=== PATIENT | male | born 1960 | race Caucasian/White ===

== ENCOUNTER 2019-04-05 14:59 | Outpatient (REF) | payer SELFPAY ==
[2019-04-05 17:12] LABS: Estmated Average Glucose 103; Hemoglobin A1C 5.2 % (4.0-6.0)
[2019-04-05 17:47] LABS: Chol HDL Ratio 4.19 mg/dL (1.0-5.00); Cholesterol 134 mg/dL (0-200); Glucose 101 mg/dL (65-115); HDL Cholesterol 32 mg/dL (60-100); LDL Cholesterol Calculated 81 mg/dL (50-129); LDL HDL Ratio 2.53 RATIO (0.00-3.22); Triglycerides 104 mg/dL (0-150)
== END 2019-04-05 15:00 | disposition home or self-care (01) ==
LOC: LAB 14:59
PROVIDERS: Family Provider Family Medicine; Visit Provider Dermatology
DX: Z13.9 Encounter for screening, unspecified (principal)
CPT/HCPCS: 80061; 82947; 83036

== ENCOUNTER 2019-07-31 03:17 | Emergency (ER) | payer BC, SELFPAY ==
[2019-07-31 03:21] VITALS: BP 154/94; PULSE 70; RESP 18; TEMP 36.5; O2SAT 96; BMI 42.5
--- NOTE | 2019-07-31 03:47 | ECG_ITS ---
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 Measurements Intervals [place] Rate: 69 P: 38 MA: 159 QRS: 45 QRSD: 84 T: 58 QT: 412 QTc: 442 Interpretive Statements SINUS RHYTHM No previous ECG available for comparison Electronically Signed On 07-31-2019 23:38:34 CDT by Jeremias Land M.D. [id number]
--- NOTE | 2019-07-31 03:48 | W.ED.ABDPA2 ---
HPI - Abdominal Pain General: Chief Complaint: Abdominal Pain Stated Complaint: abd pain Time Seen by Provider: 07/31/19 03:23 Source: patient Mode of arrival: ambulatory Limitations: no limitations History of Present Illness: HPI narrative: 58-year-old male states he has had abdominal pain since . He states the pain is sharp in nature and epigastric and was much worse after eating [place] food. He states he had a lot of belching as well. He has had a history of reflux in the past. He denies any fevers. He denies any vomiting. MD elicited complaint: abdominal pain Onset (ago): day(s) Pain Consistency: constant Location: Epigastric Severity: moderate Quality: cramping Exacerbating factors: eating Associated Symptoms: Reports belching; Denies chills, dysuria and fever(s) Review of Systems Const: Denies: fever(s), chills, body aches or change in appetite Eyes: Denies: blurry vision or eye discomfort ENMT: Denies: throat pain or dental pain Card: Denies: chest pain Resp: Denies: dyspnea GI: Reports: abdominal pain and belching : Denies: dysuria Musc: Denies: neck pain or back pain Skin/Breast: Denies: rash Neuro: Denies: headache(s) Psych: Denies: depression Dustin/Lymph: Denies: easy bruising All/Imm: Denies: urticaria PFSH ED PFSH: Social History Smoking and tobacco status: never smoked Physical Exam Const: COMMON NORMALS: no acute distress, patient oriented x3 and healthy appearing HENMT: COMMON NORMALS: normocephalic and atraumatic HEAD & SCALP: normocephalic and atraumatic Eye: COMMON NORMALS: Equal, round and reactive pupils present and EOMs intact bilaterally PUPIL: Yes Equal, round and reactive pupils present Neck/C-Spine: COMMON NORMALS: full ROM and supple Chest: COMMONS NORMALS: normal inspection of the chest and normal palpation of entire chest wall Resp: COMMON NORMALS: normal respiratory effort, No retractions, No use of accessory muscles and clear to auscultation bilaterally AUSCULTATION: clear to auscultation bilaterally Cardio: COMMON NORMALS: regular rate, regular rhythm and No murmurs present (Cardio) RATE: regular rate RHYTHM: regular rhythm GI: COMMON NORMALS: Normal to inspection, nondistended, normoactive bowel sounds present, Soft to palpation, non-tender and no masses PALPATION: Yes Soft to palpation Extremity: COMMON NORMALS: normal to inspection and full ROM Neuro: COMMON NORMALS: patient oriented x3, moves all extremities and no focal motor deficits Psych: COMMON NORMALS: mental status grossly normal, Normal thought process present and cooperative THOUGHT PROCESS: Normal thought process present Skin: COMMON NORMALS: no rashes or lesions noted and no wounds GENERAL SKIN EXAM: no rashes or lesions noted Course Vital Signs: Vital signs: Vital Signs Temperature 97.7 F 07/31/19 03:21 Pulse Rate 63 07/31/19 04:36 Respiratory Rate 20 H 07/31/19 04:36 Blood Pressure 131/83 07/31/19 04:36 Pulse Oximetry 96 07/31/19 04:36 MDM - Abdominal Pain MDM Narrative: Medical decision making narrative: Patient presents with pancreatitis that is mild in nature. Patient's lipase level here is 90. Patient has no signs of gallstones and other lab work is normal. Patient is requesting discharge and I feel he is stable for discharge. Patient is to do an all liquid diet and will place him on [place]. He is to follow-up with his primary care doctor in 2 to 4 days and return to ER if his pain worsens. He understands and agrees to plan. Lab Data: Labs: Lab Results 07/31/19 07/31/19 Range/Units 03:49 03:49 WBC 9.4 (4.0-10.0) 10^3/ uL RBC 6.02 H (4.1-5.3) 10^6/u L Hgb 14.1 (11.7-16.6) g/dL Hct 45.5 (42.0-52.0) % MCV 75.6 L (80-94) fL MCH 23.4 L (28.0-34.0) pg MCHC 31.0 (30.0-36.0) g/dL RDW 19.5 H (12.1-15.1) % Plt Count 254 (130-400) 10^3/c mm MPV 9.8 (7.4-10.4) fL Neut % (Auto) 59.3 % Lymph % (Auto) 24.0 % [place] % (Auto) 8.9 % Eos % (Auto) 7.0 % Baso % (Auto) 0.6 % Neut # (Auto) 5.6 (1.8-7.7) 10^3/u L Lymph # (Auto) 2.3 (0.8-4.8) 10^3/u L [place] # (Auto) 0.8 (0.2-0.9) 10^3/u L Eos # (Auto) 0.7 (0.0-0.8) 10^3/u L Baso # (Auto) 0.1 (0.0-0.1) 10^3/u L Nucleated RBC % (a uto) 0 % Nucleated RBCs # 0.0 /100WBC Sodium 140 (136-145) mmol/L Potassium 4.1 (3.5-5.1) mmol/L Chloride 102 (98-107) mmol/L Carbon Dioxide 27 (22-29) mmol/L Anion Gap 15.1 (5-19) BUN 15 (6-20) mg/dL Creatinine 0.9 (0.7-1.2) mg/dL GFR Calculation 86.7 L (90-130) mL/min Glucose 98 (65-115) mg/dL Calculated Osmolal ity 286 (285-295) mOsm/k g Calcium 9.5 (8.5-10.5) mg/dL Total Bilirubin 0.3 (0.15-1.2) mg/dL AST 27 (0-40) U/L ALT 28 (0-41) U/L Alkaline Phosphata se 50 (40-130) IU/L Total Protein 7.3 (6.6-8.7) g/dL Albumin 4.6 (3.5-5.2) g/dL Globulin 2.7 (1.3-4.6) g/dL Lipase 79 H (13-60) U/L Imaging Data ^: CT Abd/Pel: Radiologist's impression: [address] [address] [address] Scan Report Signed Patient: Tangela Pierre Unit #: [id number] : 1960 Age/Sex: 58 / M ADM Date: 07/31/19 Loc: ER Room/Bed: Attending Dr: Ordering Provider/Ordering MD: Rodney Sheikh MD Date of Service: 07/31/19 Procedure(s): CT abdomen pelvis w con* [id number] Accession Number(s): [id number] Report Number: [id number] PROCEDURE INFORMATION: Exam: CT Abdomen And Pelvis With Contrast Exam date and time: 07/31/2019 4:21 AM Age: 58 years old Clinical indication: Abdominal pain; Epigastric; Additional info: Abd pain TECHNIQUE: Imaging protocol: Computed tomography of the abdomen and pelvis with intravenous contrast. Radiation optimization: All CT scans at this facility use at least one of these dose optimization techniques: automated exposure control; mA and/or kV adjustment per patient size (includes targeted exams where dose is matched to clinical indication); or iterative reconstruction. Contrast material: OMNI 300; Contrast volume: 95 ml; Contrast route: INTRAVENOUS (IV); COMPARISON: No relevant prior studies available. RADIATION DOSE METRICS: Total DLP (mGy-cm): 2086.76 FINDINGS: Liver: No mass. Gallbladder and bile ducts: The gallbladder is contracted. Pancreas: There is prominence of the pancreatic head with mild stranding. No ductal dilation. No peripancreatic fluid collection. Spleen: No splenomegaly. Adrenals: No mass. Kidneys and ureters: No hydronephrosis. Stomach and bowel: No obstruction. No mucosal thickening. Appendix: No evidence of appendicitis. Intraperitoneal space: No free air. No significant fluid collection. Vasculature: No abdominal aortic aneurysm. The main portal vein and its branches, superior mesenteric vein, splenic vein are patent. Lymph nodes: No enlarged lymph nodes. Bladder: Unremarkable as visualized. Reproductive: Unremarkable as visualized. Bones/joints: Unremarkable. No acute fracture. Soft tissues: Unremarkable. CT/CT abdomen pelvis w con* [id number] IMPRESSION: Acute non complicated pancreatitis. EKG Data ^: EKG 1: Attestation: I personally reviewed and interpreted this EKG as follows: EKG interpretation date: 07/31/19 EKG interpretation time: 03:59 Interpretation: nsr hr [address] or t wave abnormalities qrs 84 qtc 430 Discharge Plan Discharge Patient Disposition: Home, Self-Care Clinical Impression: Pancreatitis Qualifiers: Chronicity: acute Pancreatitis type: unspecified pancreatitis type Acute pancreatitis complication: unspecified Qualified Code(s): K85.90 - Acute pancreatitis without necrosis or infection, unspecified Condition: Stable Prescriptions: [place] 5-325 mg tablet 1 tab PO Q6H PRN (Reason: pain) Qty: 14 RF: 0 ondansetron 4 mg tablet,disintegrating 4 mg PO Q6H PRN (Reason: nausea and vomiting) Qty: 14 RF: 0 No Action hydrochlorothiazide 12.5 mg Capsule 12.5 mg PO BID RF: 0 simvastatin 40 mg Tablet 40 mg PO QPM RF: 0 omeprazole 40 mg Capsule,Delayed Release(Dr/Ec) 40 mg PO DAILY RF: 0 citalopram 20 mg Tablet 20 mg PO DAILY RF: 0 spironolactone 25 mg Tablet 25 mg PO DAILY RF: 0 valsartan 320 mg Tablet 320 mg PO DAILY RF: 0 Discharge Orders: Discharge Order (Routine); Ordered 07/31/19 Ordered By: Rodney Sheikh Referrals: Jose Angel Marrero MD [Primary Care Provider] - 1-3 days Discharge Diet: Advance as tolerated Discharge Activity: Resume usual activity Patient Instructions: Pancreatitis (ED) Coding Level of Care Code ED Corporate Staff Accountant for Chg Fwd Exam Comprehensive
[2019-07-31] MEDS: lidocaine 2% viscous 15 ML, aluminum-mag hydrox-simethicon 30 ML, sucralfate oral liq 1 GM PO (03:58)
[2019-07-31 04:04] LABS: Basophils # 0.1 10^3/uL (0.0-0.1); Basophils % 0.6 %; Eosinophils # 0.7 10^3/uL (0.0-0.8); Hematocrit 45.5 % (42.0-52.0); Hemoglobin 14.1 g/dL (11.7-16.6); Lymphocytes # 2.3 10^3/uL (0.8-4.8); Mean Corpuscular Hemoglobin 23.4 pg (28.0-34.0); Mean Corpuscular Volume 75.6 fL (80-94); Mean Platelet Volume 9.8 fL (7.4-10.4); Monocytes # 0.8 10^3/uL (0.2-0.9); Monocytes % 8.9 %; Neutrophils # 5.6 10^3/uL (1.8-7.7); Neutrophils % 59.3 %; Nucleated Red Blood Cells % 0 %; Platelet Count 254 10^3/cmm (130-400); Red Blood Count 6.02 10^6/uL (4.1-5.3); Red Cell Distribution Width 19.5 % (12.1-15.1); White Blood Count 9.4 10^3/uL (4.0-10.0)
[2019-07-31 04:16] LABS: Alanine Aminotransferase 28 U/L (0-41); Albumin Level 4.6 g/dL (3.5-5.2); Alkaline Phosphatase 50 IU/L (40-130); Anion Gap 15.1 (5-19); Aspartate Amino Transferase 27 U/L (0-40); Blood Urea Nitrogen 15 mg/dL (6-20); Calcium 9.5 mg/dL (8.5-10.5); Carbon Dioxide 27 mmol/L (22-29); Chloride 102 mmol/L (98-107); Globulin 2.7 g/dL (1.3-4.6); Glomerular Filtration Rate 86.7 mL/min (90-130); Glucose 98 mg/dL (65-115); Lipase 79 U/L (13-60); Osmolality Calculated 286 mOsm/kg (285-295); Potassium 4.1 mmol/L (3.5-5.1); Sodium 140 mmol/L (136-145); Total Bilirubin 0.3 mg/dL (0.15-1.2); Total Protein 7.3 g/dL (6.6-8.7)
--- NOTE | 2019-07-31 04:19 | CTR_ITS ---
PROCEDURE INFORMATION: Exam: CT Abdomen And Pelvis With Contrast Exam date and time: 07/31/2019 4:21 AM Age: 58 years old Clinical indication: Abdominal pain; Epigastric; Additional info: Abd pain TECHNIQUE: Imaging protocol: Computed tomography of the abdomen and pelvis with intravenous contrast. Radiation optimization: All CT scans at this facility use at least one of these dose optimization techniques: automated exposure control; mA and/or kV adjustment per patient size (includes targeted exams where dose is matched to clinical indication); or iterative reconstruction. Contrast material: OMNI 300; Contrast volume: 95 ml; Contrast route: INTRAVENOUS (IV); COMPARISON: No relevant prior studies available. RADIATION DOSE METRICS: Total DLP (mGy-cm): 2086.76 FINDINGS: Liver: No mass. Gallbladder and bile ducts: The gallbladder is contracted. Pancreas: There is prominence of the pancreatic head with mild stranding. No ductal dilation. No peripancreatic fluid collection. Spleen: No splenomegaly. Adrenals: No mass. Kidneys and ureters: No hydronephrosis. Stomach and bowel: No obstruction. No mucosal thickening. Appendix: No evidence of appendicitis. Intraperitoneal space: No free air. No significant fluid collection. Vasculature: No abdominal aortic aneurysm. The main portal vein and its branches, superior mesenteric vein, splenic vein are patent. Lymph nodes: No enlarged lymph nodes. Bladder: Unremarkable as visualized. Reproductive: Unremarkable as visualized. Bones/joints: Unremarkable. No acute fracture. Soft tissues: Unremarkable. CT/CT abdomen pelvis w con* [id number] IMPRESSION: Acute non complicated pancreatitis. Radiation Dose CTDIVOL = (mGy): DLP = 2086.76 (mGy-cm)
[2019-07-31] MEDS: ondansetron 2 mg/ML SDV 2 mL 4 MG IVP (04:33)
[2019-07-31] MEDS: morphine 4 mg/mL SDV 1 mL IVP ×2 (04:33→05:05)
[2019-07-31 04:36] VITALS: BP 131/83; PULSE 63; RESP 20; O2SAT 96
--- NOTE | 2019-07-31 04:50 | PC.NURSE ---
Pt. to CT scan via stretcher
--- NOTE | 2019-07-31 04:57 | PC.NURSE ---
Returned from CT scan
[2019-07-31 05:30] VITALS: BP 127/77; PULSE 65; RESP 18
[2019-07-31 05:53] LABS: Add Urine Microscopic? NO
[2019-07-31 06:04] LABS: Bilirubin Urine Neg (NEGATIVE); Blood Urine Neg (Negative); Glucose Urine UA Norm (Normal); Ketones Urine Negative (Negative); Leukocyte Esterase Urine Negative (Negative); Nitrate Urine Negative (Negative); Protein Urine Neg (Negative); Specific Gravity, Urine 1.025 (1.005-1.030); Urine Appearance Clear (CLEAR); Urine Color Yellow (Yellow); Urobilinogen Urine 1 mg/dL (Negative); pH Urine 5 (5-7)
== END 2019-07-31 05:33 | disposition home or self-care (01) ==
PROVIDERS: Emergency Provider Emergency Medicine; PCP Family Medicine
DX: K85.90 Acute pancreatitis without necrosis or infection, unspecified (principal)
CPT/HCPCS: 12345; 74177; 80053; 81003; 83690; 85025; 93005; 96374; 96375; 96376; 99283; J2270; J2405; Q9967

== ENCOUNTER 2019-08-06 10:24 | Outpatient (CLI) | payer BC, SELFPAY ==
--- NOTE | 2019-08-06 10:53 | XR_ITS ---
WS: [id number] ABDOMEN 1 VIEW(S) HISTORY: LEFT UPPER QUADRANT ABDOMINAL PAIN COMPARISON: None available. Normal bowel gas pattern. No suspicious calcifications or masses. No bone abnormality. XR/XR KUB [id number] IMPRESSION: Normal abdomen.
== END 2019-08-06 10:25 | disposition home or self-care (01) ==
LOC: RADWPI 10:29
PROVIDERS: Family Provider Family Medicine; PCP Family Medicine; Visit Provider Nurse Practitioner Family
DX: R10.12 Left upper quadrant pain (principal)
CPT/HCPCS: 74018

== ENCOUNTER 2019-09-07 09:57 | Outpatient (CLI) | payer BC, SELFPAY ==
--- NOTE | 2019-09-07 10:01 | XR_ITS ---
WS: [id number] CHEST 2 VIEWS HISTORY: COUGH COMPARISON: 07/12/2016 Lungs: Clear with no abnormality. No pleural effusion or pneumothorax. Cardiac size: Normal. Mediastinum/Aorta: Normal mediastinum. Bones: Normal. XR/XR chest 2V* [id number] IMPRESSION: Normal chest.
== END 2019-09-07 09:58 | disposition home or self-care (01) ==
LOC: RADWPI 10:00
PROVIDERS: Family Provider Family Medicine; PCP Family Medicine; Visit Provider Specialist
DX: R05 Cough (principal)
CPT/HCPCS: 71046

== ENCOUNTER → 2019-11-26 15:00 | Outpatient (BNVA) | payer BC, SELFPAY | PROVIDERS: Family Provider Family Medicine; PCP Family Medicine; Visit Provider Surgery | DX: Z11.59 Encounter for screening for other viral diseases (principal) | CPT/HCPCS: 87635 ==

== ENCOUNTER 2019-11-29 08:06 | Day surgery (SDC) | payer BC, SELFPAY ==
[2019-11-27 11:18] VITALS: BMI 39.9
[2019-11-29 08:22] VITALS: BP 139/99; RESP 18; TEMP 36.6; O2SAT 97
[2019-11-29] MEDS: sodium chloride 0.9% 1,000 ML 30 ML IV (08:43)
--- NOTE | 2019-11-29 08:45 | ANES.PREANE2 ---
Pre-Anesthetic Assessment Pre-Anesthetic Assessment: Height/Weight: Height 1.75 m Weight 122.47 kg Temp Resp BP Pulse Ox 97.9 F 18 139/99 97 11/29/19 08:22 11/29/19 08:22 11/29/19 08:22 11/29/19 08:22 Preop Diagnosis: Abdominal pain Proposed Procedure: Operation Date: 11/29/19 09:00 Proposed Procedures p EGD/Colon 50067 K21.9(Not Applicable) - Donovan Meier MD s Colonoscopy 91155 Z12.11(Not Applicable) - Donovan Meier MD Was Beta Pamella taken within 24 hours: N/A Last intake: Intake Last Liquid Date 11/28/19 Last Liquid Time 20:00 Last Solid Date 11/20/19 Last Solid Time 18:00 Social: Social History: Alcohol Exam: Pre-Anes Outpt Exam: alert, oriented x 3, clear to auscultation bilaterally and regular rate & rhythm Airway: Submandibular: WNL Cervical ROM: WNL MP: 2 Dentition: False History/ROS: No significant history except as noted and No significant complaints Pulmonary: Pulmonary: None reported CV/HEM: CV/HEM: HTN : : None reported Hepatic: Comments: Hx pancreatitis GI: GI: GERD Metabolic: Metabolic: Morbid obesity Musc/skel: Musc/skel: None reported Neuropsych: Neuropsych: Depression Anesthetic Plan: ASA status: 3 Anesthesia: Anesthesia Evaluation and MAC Risk of > 500 ml blood loss (7ml/kg in children): No Meds/Allergies Current Medications: Current Medications Generic Name Dose Route Start Last Admin Trade Name Freq PRN Reason Stop Dose Admin Sodium Chloride 1,000 mls @ 30 ml s/hr 11/29/19 08:15 11/29/19 08:43 Sodium Chloride 0.9% IV 30 mls/hr .Q24H JERICA Administration PFSH Anesthesia PFSH: Medical History (Updated 11/20/19 @ 14:23 by Donovan Meier MD) Depression GERD (gastroesophageal reflux disease) Hyperlipidemia Hypertension Surgical History H/O colonoscopy yrs ago H/O esophagogastroduodenoscopy Family History Grandmother Cancer Denies family history of CAD (coronary artery disease) Anesthesia complication Bleeding disorder Social History Smoking and tobacco status: never smoked Alcohol intake: current Alcohol intake frequency: holidays/special occasions only Household members: spouse Marital status: Current occupational status: employed History of recent travel: No Data Anesthesia Cardiac Studies: No Data to Display
--- NOTE | 2019-11-29 10:10 | W.PM.OPSUD ---
Surgery/Procedure H&P Update DATE OF PROCEDURE: November 29, 2019 DATE H&P PERFORMED: 11/20/19 H&P UPDATE INFORMATION: I have reviewed H&P completed within last 30 days, I have examined patient prior to procedure and No changes to prior documentation PREOP DIAGNOSIS: Abdominal pain PLANNED PROCEDURE: Operation Date: 11/29/19 09:00 Proposed Procedures p EGD/Colon 46790 K21.9(Not Applicable) - Donovan Meier MD s Colonoscopy 31293 Z12.11(Not Applicable) - Donovan Meier MD
[2019-11-29 10:11] VITALS: BP 108/71; PULSE 86; RESP 18; TEMP 36.4; O2SAT 94
[2019-11-29 10:29] VITALS: BP 104/72; PULSE 75; RESP 18; O2SAT 97
--- NOTE | 2019-11-29 10:45 | ANE.PACU2 ---
Inpatient post-anesthesia follow up: Airway intact: Yes Vital signs: Temperature 97.5 F Pulse Rate 75 Respiratory Rate 18 Blood Pressure 104/72 Pulse Oximetry 97 Oxygen Delivery Me thod Room Air Oxygen Flow Rate Fraction of Inspir ed Oxygen Hydration adequate: Yes Nausea and vomiting: No Pain level: 1 Mental status: Baseline
== END 2019-11-29 10:45 | disposition home or self-care (01) ==
PROVIDERS: PCP Family Medicine; Visit Provider Surgery
PROC: 0DJ08ZZ Inspection of Upper Intestinal Tract, Via Natural or Artificial Opening Endoscopic (ICD-10-PCS; CPT 43235; principal; 2019-11-29 09:00)
PROC: 0DJD8ZZ Inspection of Lower Intestinal Tract, Via Natural or Artificial Opening Endoscopic (ICD-10-PCS; CPT 45378; 2019-11-29 09:00)
DX: Z12.11 Encounter for screening for malignant neoplasm of colon (principal); K21.9 Gastro-esophageal reflux disease without esophagitis; K57.30 Diverticulosis of large intestine without perforation or abscess without bleeding; K64.8 Other hemorrhoids; I10 Essential (primary) hypertension; E66.01 Morbid (severe) obesity due to excess calories; Z68.39 Body mass index [BMI] 39.0-39.9, adult; F32.9 Major depressive disorder, single episode, unspecified; E78.5 Hyperlipidemia, unspecified
CPT/HCPCS: 12345; 43239; 45378; 88305; J2704; J7030

== ENCOUNTER 2019-12-17 10:09 | Outpatient (CLI) | payer BC, SELFPAY ==
--- NOTE | 2019-12-17 10:12 | NM_ITS ---
WS: [id number] NUCLEAR MEDICINE HIDA SCAN CLINICAL INFORMATION: abdominal pain TECHNIQUE: Following intravenous administration of 7.8 mCi of technetium 99m mebrofenin, images of th e abdomen were obtained over the course of 60 minutes. Next, gallbladder ejection fraction was determ ined by obtaining preprandial and one-hour postprandial images of the gallbladder following oral ken stion of Ensure. COMPARISON: None. FINDINGS: Normal hepatic uptake at 5 minutes. Normal filling of the common bile duct. Gallbladder is visualized by 30 minutes. No evidence of acute cholecystitis. Normal small bowel activity. Normal hepatic excre tion. No evidence of choledocholithiasis. Gallbladder ejection fraction 38% at the lower end of the range. Findings suspicious for gallbladder dysfunction and chronic cholecystitis NM/NM hepatobiliary w phar* [id number] IMPRESSION: 1. No evidence of acute cholecystitis. 2. Gallbladder ejection fraction 38% at the lower end of the range suspicious for underlying gallbladder dysfunction and chronic cholecystitis 3. Normal hepatic uptake and excretion. 4. Normal common bile duct and small bowel activity.
== END 2019-12-17 10:10 | disposition home or self-care (01) ==
LOC: NM 10:10
PROVIDERS: PCP Family Medicine; Visit Provider Surgery
DX: R10.9 Unspecified abdominal pain (principal)
CPT/HCPCS: 78227; A9537

== ENCOUNTER → 2019-12-25 10:09 | Outpatient (BNVA) | payer BC, SELFPAY | PROVIDERS: PCP Family Medicine; Visit Provider Surgery | DX: Z11.59 Encounter for screening for other viral diseases (principal); K82.8 Other specified diseases of gallbladder | CPT/HCPCS: 87635 ==

== ENCOUNTER 2019-12-31 06:14 | Day surgery (SDC) | payer BC, SELFPAY ==
[2019-12-28 10:46] VITALS: BMI 41.0
[2019-12-31] VITALS (10 sets, daily range): BP systolic 96–157; BP diastolic 59–91; PULSE 66–86; RESP 15–20; TEMP 36.1–36.9; O2SAT 94–97
--- NOTE | 2019-12-31 06:46 | ANES.PREANE2 ---
Pre-Anesthetic Assessment Pre-Anesthetic Assessment: Height/Weight: Height 1.73 m Weight 122.47 kg Temp Pulse Resp BP Pulse Ox 98.5 F 68 18 157/91 96 12/31/19 06:26 12/31/19 06:26 12/31/19 06:26 12/31/19 06:26 12/31/19 06:26 Preop Diagnosis: Biliary dyskinesia Proposed Procedure: Operation Date: 12/31/19 07:55 Proposed Procedures p Laparoscopic poss open Cholecystectomy 47448 k82.8(Not Applicable) - Donovan Meier MD Familial anesthetic complications: None Was Beta Pamella taken within 24 hours: N/A Last intake: Intake Last Liquid Date 12/30/19 Last Liquid Time 20:00 Last Solid Date 12/30/19 Last Solid Time 20:00 Social: Social History: No alcohol and No tobacco Exam: Pre-Anes Outpt Exam: alert, oriented x 3, clear to auscultation bilaterally and regular rate & rhythm Airway: Cervical ROM: WNL MP: 4 Dentition: False Additional comments: small mouth opening CV/HEM: CV/HEM: HTN GI: GI: GERD Metabolic: Metabolic: Morbid obesity Anesthetic Plan: ASA status: 3 Anesthesia: General Risk of > 500 ml blood loss (7ml/kg in children): No PFSH Anesthesia PFSH: Medical History Depression GERD (gastroesophageal reflux disease) Hyperlipidemia Hypertension Surgical History H/O colonoscopy (11/29/19) repeat in 10 years H/O esophagogastroduodenoscopy (11/29/19) Family History Grandmother Cancer Denies family history of CAD (coronary artery disease) Anesthesia complication Bleeding disorder Social History Smoking and tobacco status: never smoked Alcohol intake: current Alcohol intake frequency: holidays/special occasions only Household members: spouse Marital status: Current occupational status: employed History of recent travel: No Data Anesthesia Cardiac Studies: No Data to Display
[2019-12-31] MEDS: sodium chloride 0.9% 1,000 ML 30 ML IV (06:48)
--- NOTE | 2019-12-31 06:58 | W.PM.OPSUD ---
Surgery/Procedure H&P Update DATE OF PROCEDURE: December 31, 2019 DATE H&P PERFORMED: 12/21/19 H&P UPDATE INFORMATION: I have reviewed H&P completed within last 30 days, I have examined patient prior to procedure and No changes to prior documentation PREOP DIAGNOSIS: Biliary dyskinesia PLANNED PROCEDURE: Operation Date: 12/31/19 07:55 Proposed Procedures p Laparoscopic poss open Cholecystectomy 18424 k82.8(Not Applicable) - Donovan Meier MD
--- NOTE | 2019-12-31 08:29 | SUR.OPER ---
0825-phoned via cell phone and gave update on process.
--- NOTE | 2019-12-31 08:58 | PM.OP ---
Operative Report Date of procedure: December 31, 2019 Pre-op Diagnosis: Biliary dyskinesia Post-op Diagnosis: Chronic cholecystitis with inflammation around the Calot's triangle Procedure Done: Laparoscopic cholecystectomy Specimens removed/disposition: Gallbladder Surgeon: Donovan Meier Anesthesia: General Condition: stable Disposition: PACU Procedure: The patient was taken to the operating room and was intubated under general anesthesia. After the antibiotic had been administered, the abdomen was prepped and draped in a sterile manner. Using a #15 blade, a 1 centimeter infraumbilical curvilinear incision was made and using an open Moe technique the peritoneal cavity was entered. A 10 millimeter port was placed and 15 millimeters of pneumoperitoneum was created. A 10 millimeter, 30 degrees scope was then introduced. Three 5 millimeter ports were placed in the epigastric, midclavicular and the anterior axillary line two fingerbreadths below the costal margin on the right side under the direct visualization. Ratcheted forceps were introduced into the lateral most port and was used to retract the fundus of the gallbladder cephalad and using forceps the infundibulum of the gallbladder was retracted laterally. Using L-hook cautery the peritoneum overlying the Calot's triangle was opened medially and laterally until the cystic duct and the cystic artery were skeletonized. There was inflammation around the Calot's triangle. Dissection was carried along the body of the gallbladder and after ensuring critical view of safety, 4 clips applied on the cystic duct and 3 clips applied on the cystic artery and cut leaving, 3 clips on the remaining portion of the duct and 2 clips on the remaining portion of the artery. The rest of the gallbladder was dissected off the liver using L-hook cautery. There was no bleeding or bile leaking noted from the gallbladder fossa and the clips appeared to be in place. An EndoCatch bag was introduced to remove the gallbladder. All the ports were removed under direct visualization and there was no bleeding noted from the port sites. The fascia of the umbilicus was closed using [id number] 0 Vicryl sutures and the subcutaneous tissue was approximated using 3-0 Vicryl sutures. The skin at all four ports were closed using 4-0 Monocryl and Dermabond. A total of 10 millimeters of 0.5% Marcaine was infiltrated around the port sites. The patient was stable throughout the procedure.
[2019-12-31] MEDS: HYDROcodone-acetaminophen 5-325 mg Tablet 1 TAB PO (09:46)
[2019-12-31] MEDS: fentaNYL 50 mcg/mL INJ 2mL IVP (10:14)
--- NOTE | 2019-12-31 10:15 | PC.NURSE ---
pt c/o pain 08/16. given 1 dose of norco per dr carranza written rx for home. pt states no relief from norco. gave 50mcg fentanyl per recovery anesthesia orders. will continue to monitor pulse ox and resp rate. will re-evaluate and send home if pain relief achieved.
--- NOTE | 2019-12-31 15:14 | ANE.PACU2 ---
Inpatient post-anesthesia follow up: Airway intact: Yes Vital signs: Temperature 97.2 F Pulse Rate 66 Respiratory Rate 16 Blood Pressure 124/87 Pulse Oximetry 96 Oxygen Delivery Me thod Room Air Oxygen Flow Rate 8 Fraction of Inspir ed Oxygen Hydration adequate: Yes Nausea and vomiting: No Pain level: 2 Mental status: Baseline
== END 2019-12-31 10:46 | disposition home or self-care (01) ==
PROVIDERS: PCP Family Medicine; Visit Provider Surgery
PROC: 0FT44ZZ Resection of Gallbladder, Percutaneous Endoscopic Approach (ICD-10-PCS; CPT 47562; principal; 2019-12-31 07:55)
DX: K80.10 Calculus of gallbladder with chronic cholecystitis without obstruction (principal); I10 Essential (primary) hypertension; K21.9 Gastro-esophageal reflux disease without esophagitis; E66.01 Morbid (severe) obesity due to excess calories; Z68.41 Body mass index [BMI] 40.0-44.9, adult; E78.5 Hyperlipidemia, unspecified
CPT/HCPCS: 47562; 12345; 88304; J0690; J1100; J1885; J2405; J2704; J3010; J3490; J7030

== ENCOUNTER 2021-03-18 11:36 | Outpatient (RCR) | payer BC, SELFPAY | END 2021-04-06 23:59 | disposition home or self-care (01) | LOC: SPT 11:36 | PROVIDERS: PCP Family Medicine; Referring Provider Nurse Practitioner Family; Visit Provider Nurse Practitioner Family | DX: M25.511 Pain in right shoulder (principal) | CPT/HCPCS: 97110; 97140; 97161 ==

== ENCOUNTER 2021-04-07 06:00 | Outpatient (RCR) | payer BC, SELFPAY | END 2021-05-07 23:59 | disposition home or self-care (01) | LOC: SPT 06:00 | PROVIDERS: PCP Family Medicine; Referring Provider Nurse Practitioner Family; Visit Provider Nurse Practitioner Family | DX: M25.511 Pain in right shoulder (principal) | CPT/HCPCS: 97110; 97140 ==